=== PATIENT | female | born 1940 | race Caucasian/White ===

== ENCOUNTER 2017-02-27 12:22 | Inpatient (IN) | payer OTHER ==
[~2017-02-27] VITALS: Ht 154.9 cm; Wt 85.8 kg
[~2017-02-27 12:22] MED LIST: AMLO10TA2 PO; CALC500T25 PO; CHOL100010 PO; CIME-56 PO; MAGN500T4 PO; MISCCAP80 PO; OMEG10007 PO; PRLSR20 PO; VITBC PO
[2017-02-27] MEDS ORDERED: SODIUM CHLORIDE 0.9% 1000ML 2,000 ML IV STA (12:48)
[2017-02-27] MEDS ORDERED: CEFEPIME IV 1,000 MG in DEXTROSE 5% 100ML 100 ML IV STA (12:48)
--- NOTE | 2017-02-27 13:04 | DIAGNOSTIC IMAGING REPORT ---
CHEST ONE VIEW PORTABLE HISTORY: fever COMPARISON: Chest 01/11/2013. FINDINGS: Linear density at the left lung base favor subsegmental atelectasis or scarring. No focal lung consolidations to suggest pneumonia. No pleural effusions. No pneumothorax. The heart is mildly enlarged. IMPRESSION: Mild cardiomegaly. No focal lung consolidations to suggest pneumonia. Electronically signed by: Evelio Kelley M.D. 02/27/2017 1:02 PM Dictated Date/Time: 02/27/2017 1:01 PM
[2017-02-27 13:06] LABS: COMPLETE YES; EOS % 0.1 %; HEMATOCRIT 42.8 % (37-47); IG% 0.2 %; LYMPH % 7.5 %; LYMPH ABS # 0.72 K/uL (1.2-3.4); MEAN CELL VOLUME 86.8 fL (80-100); MEAN CORPUSCULAR HEMOGLOBIN 29.8 pg (25-34); MEAN CORPUSCULAR HGB CONC 34.3 g/dl (32-36); MEAN PLATELET VOLUME 10.5 fL (7.4-10.4); MONO % 6.8 %; NEUT % 85.4 %; PLATELET COUNT 165 K/uL (130-400); RED BLOOD COUNT 4.93 M/uL (4.2-5.4); WHITE BLOOD COUNT 9.66 K/uL (4.8-10.8)
[2017-02-27 13:11] LABS: ISTAT CREATININE 1.2 mg/dl (0.6-1.3); ISTAT HEMOGLOBIN 14.3 g/dl (12.0-16.0); ISTAT IONIZED CALCIUM 1.18 mmol/l (1.12-1.32)
[2017-02-27 13:11] LABS: PROTHROMBIN TIME (PATIENT) 10.2 SECONDS (9.0-12.0)
[2017-02-27] MEDS ORDERED: OPTIRAY 320 IV PRN (13:15)
[2017-02-27 13:27] LABS: ALT/SGPT 24 U/L (12-78); AST/SGOT 16 U/L (15-37); BLOOD UREA NITROGEN 20 mg/dl (7-18); CALCIUM 8.8 mg/dl (8.5-10.1); CARBON DIOXIDE 24 mmol/L (21-32); CHLORIDE 109 mmol/L (98-107); GLUCOSE 141 mg/dl (70-99); MAGNESIUM 1.6 mg/dl (1.8-2.4); SODIUM 143 mmol/L (136-145)
[2017-02-27 13:32] LABS: ALKALINE PHOSPHATASE 80 U/L (45-117); CKMB/CK RATIO 3.3 (0-3.0)
[2017-02-27] MEDS ORDERED: ONDANSETRON INJ 2 MG/ML 2 ML VIAL IV STA (13:33)
[2017-02-27] MEDS ORDERED: ACETAMINOPHEN 500 MG TAB PO STA (13:33)
--- NOTE | 2017-02-27 13:38 | DIAGNOSTIC IMAGING REPORT ---
ABDOMEN AND PELVIS CT WITH IV CONTRAST CT DOSE: 782.00 mGy.cm HISTORY: Left lower quadrant abdominal pain. TECHNIQUE: Multiaxial CT images of the abdomen and pelvis were performed following the use of intravenous contrast. COMPARISON STUDY: Abdomen and pelvis CT 08/20/2013. FINDINGS: Linear density lung bases suggestive of subsegmental atelectasis. There are also a few groundglass densities within the lung bases which may be due to mild air trapping. No pneumoperitoneum. No pneumatosis. The liver, spleen, adrenal glands, and pancreas are unremarkable. No retroperitoneal lymphadenopathy. There are few bilateral renal hypodense lesions. Majority of these favor cysts. However there is a 13 mm heterogeneous lesion within the left kidney on image 157 which does not clearly represent a simple cyst. This may demonstrate enhancement and is concerning for a solid renal mass. Normal gallbladder. The uterus, bilateral adnexa, and bladder are unremarkable. Colonic diverticulosis. The colon and small bowel are decompressed which results in suboptimal evaluation. Normal appendix. No bowel obstruction. Questionable thickening and engorgement of the mesenteric vessels within the small bowel loops most pronounced within the right lower quadrant. However, this could be due to the underdistention. IMPRESSION: 1. No evidence for bowel obstruction. Question wall thickening within the small bowel loops within the right side of the abdomen and lower quadrant could be due to underdistention. However, a low-grade enteritis could also have a similar appearance. 2. Colonic diverticulosis. 3. Normal appendix. 4. A 13 mm lesion within the left kidney which is concerning for a solid renal mass. Dedicated nonemergent renal CT or renal MRI is recommended for further evaluation. Electronically signed by: Evelio Kelley M.D. 02/27/2017 1:36 PM Dictated Date/Time: 02/27/2017 1:25 PM
[2017-02-27 14:02] LABS: URINE APPEARANCE CLEAR (CLEAR); URINE BILIRUBIN NEG (NEG); URINE COLOR YELLOW; URINE NITRITE NEG (NEG); URINE PH 5.5 (4.5-7.5); URINE SPECIFIC GRAVITY 1.029 (1.000-1.030); UROBILINOGEN NEG (NEG); ZZURINE CULT IF INDIC CATH NO
[2017-02-27 14:04] LABS: MANUAL MICROSCOPIC REQUIRED? NO; REVIEW REQ? NO
--- NOTE | 2017-02-27 14:46 | EMERGENCY ROOM VISIT NOTE ---
History Report prepared by Elizabeth: Donovan Morrow Under the Supervision of: Dr. Richard Belle D.O. First contact with patient: 12:32 Chief Complaint: ABDOMINAL PAIN Stated Complaint: ABD PAIN, COLD, CHILLS, N/V/D History of Present Illness The patient is a 76 year old female who presents to the Emergency Room with complaints of increased abdominal pain at 0400 this morning. She has had recurrent abdominal pain and bloating for several weeks, which seemed to be initially improving after starting Prilosec. This morning at approximately 0400 she began to experience increased abdominal pain, currently rated 6/10 in severity. This morning she also started to experience chills, nausea, vomiting, and diarrhea. She did not measure her temperature for a fever. The patient ate alone last night and nobody shared the same food. She still has her gallbladder and appendix. Patient denies headache, change in vision, cough, sore throat, rhinorrhea, chest pain, shortness of breath, pain with urination, and melena. She does admit to an earache which has been present for the past 4 months waxing and waning but fairly consistent. She has been unable to eat or drink anything since this started. She does live at home alone. Source of History: patient Onset: 0400 this morning Position: abdomen Symptom Intensity: 6/10 Timing: other (increased) Associated Symptoms: + chills, + diarrhea, + nausea, + vomiting, No SOB, No chest pain, No cough, No fevers, No headache, No melena, No sorethroat, No urinary symptoms Review of Systems See HPI for pertinent positives & negatives. A total of 10 systems reviewed and were otherwise negative. Past Medical & Surgical Medical Problems: (1) Breast cancer (2) Pyelonephritis (3) Stage I breast cancer Family History Diabetes mellitus FHx: cancer FHx: heart disease Hypertension Social History Smoking Status: Never Smoker Alcohol Use: none Drug Use: none Marital Status: single Housing Status: lives alone Occupation Status: retired Current/Historical Medications Scheduled Amlodipine Besylate (Norvasc), 10 MG PO DAILY Calcium Carbonate (Calcium), 1,200 MG PO DAILY Cholecalciferol (Vitamin D), 2,000 INTER.UNIT PO DAILY Fish Oil (Seneca-3), 1 CAP PO DAILY Magnesium Oxide (Mg Supplement (Magnesium), 250 MG PO DAILY Omeprazole (Prilosec), 20 MG PO DAILY Probiotic Product (Probiotic), 1 CAP PO DAILY Vitamin B Complex (Vitamin B Complex), 1 TAB PO DAILY Allergies Coded Allergies: Ciprofloxacin (Verified Allergy, Intermediate, HIVES, 02/27/17) Penicillins (Unverified Allergy, Mild, RASH, 02/27/17) Uncoded Allergies: dermabond tape (Allergy, Severe, rash severe skin breakdown, 11/24/12) Physical Exam Vital Signs Date Time Temp Pulse Resp B/P Pulse Ox O2 Delivery O2 Flow Rate FiO2 02/27/17 14:16 92 18 135/63 96 Room Air 02/27/17 13:28 89 18 185/81 96 Room Air 02/27/17 12:27 38.8 116 20 182/87 97 Room Air Physical Exam GENERAL: Sitting up in bed, ill appearing, mild distress. EYE EXAM: normal conjunctiva. EARS: Mild erythema of left TM with blood on the inferior portion of the TM, right TM normal. OROPHARYNX: no exudate, no erythema, lips, buccal mucosa, and tongue normal and mucous membranes are moist NECK: supple, no nuchal rigidity, no adenopathy, non-tender LUNGS: Clear to auscultation. Normal chest wall mechanics HEART: no murmurs, S1 normal and S2 normal ABDOMEN: abdomen soft, tender to palpation periumbilically, normo-active bowel sounds, no masses, no rebound or guarding. BACK: Back is symmetrical on inspection and there is no deformity, no midline tenderness, no CVA tenderness. SKIN: no rashes and no bruising UPPER EXTREMITIES: upper extremities are grossly normal. LOWER EXTREMITIES: No pitting edema. NEURO EXAM: Normal sensorium, cranial nerves II-XII grossly intact, normal speech, no gross weakness of arms, no gross weakness of legs. Gross sensation intact. Medical Decision & Procedures ER Provider Diagnostic Interpretation: Radiology results as stated below per my review and the radiologist's interpretation: ABDOMEN AND PELVIS CT WITH IV CONTRAST CT DOSE: 782.00 mGy.cm HISTORY: Left lower quadrant abdominal pain. TECHNIQUE: Multiaxial CT images of the abdomen and pelvis were performed following the use of intravenous contrast. COMPARISON STUDY: Abdomen and pelvis CT 08/20/2013. FINDINGS: Linear density lung bases suggestive of subsegmental atelectasis. There are also a few groundglass densities within the lung bases which may be due to mild air trapping. No pneumoperitoneum. No pneumatosis. The liver, spleen, adrenal glands, and pancreas are unremarkable. No retroperitoneal lymphadenopathy. There are few bilateral renal hypodense lesions. Majority of these favor cysts. However there is a 13 mm heterogeneous lesion within the left kidney on image 157 which does not clearly represent a simple cyst. This may demonstrate enhancement and is concerning for a solid renal mass. Normal gallbladder. The uterus, bilateral adnexa, and bladder are unremarkable. Colonic diverticulosis. The colon and small bowel are decompressed which results in suboptimal evaluation. Normal appendix. No bowel obstruction. Questionable thickening and engorgement of the mesenteric vessels within the small bowel loops most pronounced within the right lower quadrant. However, this could be due to the underdistention. IMPRESSION: 1. No evidence for bowel obstruction. Question wall thickening within the small bowel loops within the right side of the abdomen and lower quadrant could be due to underdistention. However, a low-grade enteritis could also have a similar appearance. 2. Colonic diverticulosis. 3. Normal appendix. 4. A 13 mm lesion within the left kidney which is concerning for a solid renal mass. Dedicated nonemergent renal CT or renal MRI is recommended for further evaluation. Electronically signed by: Evelio Kelley M.D. 02/27/2017 1:36 PM Dictated Date/Time: 02/27/2017 1:25 PM CHEST ONE VIEW PORTABLE HISTORY: fever COMPARISON: Chest 01/11/2013. FINDINGS: Linear density at the left lung base favor subsegmental atelectasis or scarring. No focal lung consolidations to suggest pneumonia. No pleural effusions. No pneumothorax. The heart is mildly enlarged. IMPRESSION: Mild cardiomegaly. No focal lung consolidations to suggest pneumonia. Electronically signed by: Evelio Kelley M.D. 02/27/2017 1:02 PM Dictated Date/Time: 02/27/2017 1:01 PM Laboratory Results 02/27/17 12:40 Red Blood Count 4.93, Mean Corpuscular Volume 86.8, Mean Corpuscular Hemoglobin 29.8, Mean Corpuscular Hemoglobin Concent 34.3, Mean Platelet Volume 10.5, Neutrophils (%) (Auto) 85.4, Lymphocytes (%) (Auto) 7.5, Monocytes (%) (Auto) 6.8, Eosinophils (%) (Auto) 0.1, Basophils (%) (Auto) 0.0, Neutrophils # (Auto) 8.25, Lymphocytes # (Auto) 0.72, Monocytes # (Auto) 0.66, Eosinophils # (Auto) 0.01, Basophils # (Auto) 0.00 02/27/17 12:40 Test 02/27/17 12:40 02/27/17 12:54 02/27/17 12:57 02/27/17 13:44 White Blood Count 9.66 K/uL (4.8-10.8) Red Blood Count 4.93 M/uL (4.2-5.4) Hemoglobin 14.7 g/dL (12.0-16.0) Hematocrit 42.8 % (37-47) Mean Corpuscular Volume 86.8 fL (80-100) Mean Corpuscular Hemoglobin 29.8 pg (25-34) Mean Corpuscular Hemoglobin Concent 34.3 g/dl (32-36) Platelet Count 165 K/uL (130-400) Mean Platelet Volume 10.5 fL (7.4-10.4) Neutrophils (%) (Auto) 85.4 % Lymphocytes (%) (Auto) 7.5 % Monocytes (%) (Auto) 6.8 % Eosinophils (%) (Auto) 0.1 % Basophils (%) (Auto) 0.0 % Neutrophils # (Auto) 8.25 K/uL (1.4-6.5) Lymphocytes # (Auto) 0.72 K/uL (1.2-3.4) Monocytes # (Auto) 0.66 K/uL (0.11-0.59) Eosinophils # (Auto) 0.01 K/uL (0-0.5) Basophils # (Auto) 0.00 K/uL (0-0.2) RDW Standard Deviation 44.8 fL (36.4-46.3) RDW Coefficient of Variation 14.1 % (11.5-14.5) Immature Granulocyte % (Auto) 0.2 % Immature Granulocyte # (Auto) 0.02 K/uL (0.00-0.02) Prothrombin Time 10.2 SECONDS (9.0-12.0) Prothromb Time International Ratio 1.0 (0.9-1.1) Est Creatinine Clear Calc Drug Dose 37.0 ml/min Estimated GFR () 46.2 Estimated GFR (Non- 39.8 BUN/Creatinine Ratio 15.0 (10-20) Calcium Level 8.8 mg/dl (8.5-10.1) Magnesium Level 1.6 mg/dl (1.8-2.4) Total Bilirubin 0.5 mg/dl (0.2-1) Direct Bilirubin 0.1 mg/dl (0-0.2) Aspartate Amino Transf (AST/SGOT) 16 U/L (15-37) Alanine Aminotransferase (ALT/SGPT) 24 U/L (12-78) Alkaline Phosphatase 80 U/L (45-117) Total Creatine Kinase 89 U/L (26-192) Creatine Kinase MB 2.9 ng/ml (0.5-3.6) Creatine Kinase MB Ratio 3.3 (0-3.0) Troponin I < 0.015 ng/ml (0-0.045) Total Protein 7.3 gm/dl (6.4-8.2) Albumin 4.1 gm/dl (3.4-5.0) Bedside Lactic Acid Venous 1.62 mmol/L (0.90-1.70) Bedside Hemoglobin 14.3 g/dl (12.0-16.0) Bedside Hematocrit 42 % (37-47) Bedside Sodium 143 mEq/L (135-144) Bedside Potassium 4.0 mEq/L (3.3-5.0) Bedside Chloride 106 mEq/L (101-112) Bedside Total CO2 21 mEq/l (24-31) Anion Gap 21.0 mmol/L (16-25) Bedside Blood Urea Nitrogen 21 mg/dl (7-18) Bedside Creatinine 1.2 mg/dl (0.6-1.3) Bedside Glucose (other) 146 mg/dl (70-99) Bedside Ionized Calcium (Savage) 1.18 mmol/l (1.12-1.32) Urine Color YELLOW Urine Appearance CLEAR (CLEAR) Urine pH 5.5 (4.5-7.5) Urine Specific [place] 1.029 (1.000-1.030) Urine Protein NEG (NEG) Urine Glucose (UA) NEG (NEG) Urine Ketones NEG (NEG) Urine Occult Blood NEG (NEG) Urine Nitrite NEG (NEG) Urine Bilirubin NEG (NEG) Urine Urobilinogen NEG (NEG) Urine Leukocyte Esterase NEG (NEG) Urine WBC (Auto) 1-5 /hpf (0-5) Urine RBC (Auto) 0-4 /hpf (0-4) Urine Hyaline Casts (Auto) 0 /lpf (0-5) Urine Epithelial Cells (Auto) 10-20 /lpf (0-5) Urine Bacteria (Auto) NEG (NEG) Laboratory results per my review. Medications Administered Medications (Trade) Dose Ordered Sig/Balta Route Start Time Stop Time Status Last Admin Dose Admin Sodium Chloride 2,000 ml @ 999 mls/hr Q2H1M STAT IV 02/27/17 12:48 02/27/17 14:48 02/27/17 12:48 999 MLS/HR Cefepime HCl/ Dextrose (Maxipime IV/D5 100ml) 111.3 ml @ 200 mls/hr NOW STAT IV 02/27/17 12:48 02/27/17 13:21 DC 02/27/17 13:25 200 MLS/HR Ondansetron HCl (Zofran Inj) 4 mg NOW STAT IV 02/27/17 13:33 02/27/17 13:34 DC 02/27/17 14:13 4 MG Acetaminophen (Tylenol Tab) 1,000 mg NOW STAT PO 02/27/17 13:33 02/27/17 13:34 DC 02/27/17 14:14 1,000 MG ECG Indication: abdominal pain Rate (beats per minute): 96 Rhythm: sinus rhythm Findings: 1st degree AV block, LBBB, left axis deviation Comparison ECG Date: 17 April 2014 Change: no significant change ED Course ED COURSE: Vital signs were reviewed and showed fever, tachycardia, hypertension. The patients medical record was reviewed The above diagnostic studies were performed and reviewed. ED treatments and interventions as stated above. 1236: The patient was evaluated in room A11b. A complete history and physical examination was performed. 1248: Cefepime HCl 1000 mg / dextrose 111.3 ml @ 200 mls/hr, NSS 2000 ml @ 999 mls/hr. 1333: Tylenol 1000 mg PO, Zofran 4 mg IV. 1413: Discussed the case with Kailyn Perez PA-C, [facility] Hospitalist. The patient will be evaluated. 1415: Upon reevaluation, the patient is stable.I discussed my findings with the patient and she understands and agrees with the treatment plan. Based on the patients age, coexisting illnesses, exam and lab findings the decision to treat as an inpatient was made. The patient remained stable while under my care. The patient will be evaluated for further management. Medical Decision Differential diagnoses includes but is not limited to gastritis, peptic ulcer disease, GERD, gallbladder disease, pancreatitis, small bowel obstruction, acute coronary syndrome, pericarditis, ischemic bowel, irritable bowel disease, irritable bowel syndrome, appendicitis, diverticulitis, malignancy, hernia, urinary tract infection, torsion, perforation, trauma, infectious. Patient is a 76-year-old female who presents the ER for abdominal pain associated with nausea, vomiting and diarrhea. Her abdominal exam is fairly unimpressive. Vitals were remarkable for a temp of 39 and heart rate in the 110 's. IV was established she is given 2 L normal saline. CBC along with BMP, LFTs, bilirubin and troponin were negative. UA was negative. With her abdominal pain and fever she was sent for CT of the abdomen and pelvis which shows mild inflammation of the small bowel which is likely consistent with her gastroenteritis. I do not believe that this is ischemic with a lactate of 1.7. Heart rate improved with fluids. She initially declined Tylenol because she did not want to vomit but she was later agreeable following getting Zofran. She was given a dose cefepime initially with her fever. Based on her symptoms I do believe this consistent with a gastroenteritis. Her left ear is erythematous with blood in the inferior portion but with her pain being present for the past 3-4 months I favor that this is not the likely cause of her fevers. Discussed the case with internal medicine, patient will be evaluated for further workup. Consults Time Called: 1400 Consulting Physician: Kailyn Perez PA-C, [facility] Hospitalist. Returned Call: 1413 The patient will be evaluated. Impression Primary Impression: Acute gastroenteritis Additional Impression: Otitis Scribe Attestation The scribe's documentation has been prepared under my direction and personally reviewed by me in its entirety. I confirm that the note above accurately reflects all work, treatment, procedures, and medical decision making performed by me. Departure Information Dispostion Being Evaluated By Hospitalist Referrals Amy Colmenares M.D. (PCP) Patient Instructions My [facility] Problem Qualifiers Additional Impression: Otitis Laterality: left Qualified Codes: H66.92 - Otitis media, unspecified, left ear
[2017-02-27] MEDS ORDERED: MAGNESIUM SULFATE 1GM / D5W 1 GM in PREMIXED IN D5W 100 ML IV STA (14:51)
[2017-02-27] MEDS ORDERED: ONDANSETRON INJ 2 MG/ML 2 ML VIAL IV PRN (15:45)
[2017-02-27] MEDS ORDERED: ACETAMINOPHEN 325 MG TAB PO PRN (15:45)
[2017-02-27] MEDS ORDERED: CALC500C3 PO (15:55)
[2017-02-27] MEDS ORDERED: TURM500T PO (15:55)
[2017-02-27] MEDS ORDERED: TRAM-10 PO (15:55)
[2017-02-27] MEDS ORDERED: FLUT0.15 NAE (15:55)
[2017-02-27] MEDS ORDERED: CHOLTAB11 PO (15:55)
[2017-02-27] MEDS ORDERED: OXYM0.056 NAE (15:55)
[2017-02-27] MEDS ORDERED: MAGN1CAP4 PO (15:55)
[2017-02-27] MEDS ORDERED: LORA-741 PO (15:55)
[2017-02-27] MEDS ORDERED: TRAMADOL HCL 50 MG TAB PO PRN (16:00)
[2017-02-27] MEDS ORDERED: LORAZEPAM 0.5 MG TAB PO PRN (16:00)
[2017-02-27] MEDS ORDERED: MAGNESIUM SULFATE 1GM / D5W 1 GM BAG ONE (16:01)
[2017-02-27] MEDS: MAGNESIUM SULFATE 1GM / D5W 1 GM BAG IV SCH ×2 (16:15→18:13)
[2017-02-27 16:30] VITALS: BP 156/78; PULSE 90; TEMP 37.4; O2SAT 94; Ht 154.9 cm; Wt 85.8 kg
[2017-02-27] MEDS: SODIUM CHLORIDE 0.9% 1000ML 1,000 ML IV SCH (17:22)
[2017-02-27] MEDS ORDERED: MAGNESIUM SULFATE 1GM / D5W 1 GM in PREMIXED IN D5W 100 ML IV ONE (18:00)
[2017-02-27] MEDS ORDERED: ENOXAPARIN 40 MG/0.4 ML SYR SQ SCH (18:00)
[2017-02-27] MEDS: METRONIDAZOLE / NSS 500 MG in PREMIXED NSS 100 ML IV SCH (18:10)
[2017-02-27 18:39] VITALS: BP 124/72; PULSE 80
--- NOTE | 2017-02-27 18:40 | History and Physical ---
History & Physical Date & Time of Service: February 27, 2017 at 16:00 Chief Complaint: Abd Pain, Cold, Chills, N/V/D Primary Care Physician: Amy Colmenares M.D. History of Present Illness Source: patient, family (daughter in law at bedside), clinic records This is a 76 year old female with PMH of HTN, CKD stage III, breast CA s/p surgery and radiation, GERD, and other problems listed below who presents to the ED for gastrointestinal symptoms starting overnight. Patient states at 4 am this morning she developed periumbilical abdominal pain, bloating, nausea, vomiting, diarrhea, chills, fever of 101.8 at home. Currently pain is resolved but still feels bloated. Pt reports intermittent bloating in the past which initially improved when she was started on Prilosec 2 weeks ago. She was feeling well yesterday. Had pork and sauerkraut last evening. Pt reports 3 month history of intermittent left ear discomfort with decreased hearing for which she has an ENT appointment later this month. The ear is not bothering her currently. Denies weight loss, URI symptoms, cough, SOB, chest pain, swallowing difficulty, reflux, GI bleeding, dysuria, frequency, urgency, calf pain, edema. No recent travel, sick contact, or recent antibiotics. Patient admits to history of left sided kidney mass for several years. Past Medical/Surgical History Medical Problems: (1) Breast cancer Permanent Comment: Status post abnormal left breast mammogram Status post biopsy Status post lumpectomy and sentinel lymph node biopsy 10/25/2012 Stage [id number] Estrogen receptor negative, progesterone receptor positive, and HER-2/shine negative Status post completion of radiation therapy 02/20/2013 received 5930 cGy Status: Resolved (2) GERD (gastroesophageal reflux disease) Status: Chronic (3) HTN (hypertension) Status: Chronic (4) Osteoarthritis Status: Chronic (5) PUD (peptic ulcer disease) Permanent Comment: hx duodenal ulcer Status: Chronic (6) Pyelonephritis Status: Resolved (7) Stage I breast cancer Permanent Comment: Abnormal right breast mammogram Status post biopsy followed by lumpectomy and sentinel lymph node biopsy Stage [id number] Estrogen receptor negative progesterone receptor negative HER-2/shine negative Status post completion of radiation therapy 02/06/2015 received 6120 cGy Status: Resolved Surgical Problems: (1) H/O colonoscopy Permanent Comment: 05/2013- diverticulosis Status: Chronic (2) H/O esophagogastroduodenoscopy Permanent Comment: 01/10/2008- normal 05/2013-small hiatal hernia Status: Chronic (3) History of carpal tunnel surgery Status: Chronic (4) History of lumpectomy of left breast Status: Chronic (5) S/P tubal ligation Status: Chronic (6) Status post hysteroscopic polypectomy Status: Chronic (7) Status post partial mastectomy of right breast Status: Chronic Family History Diabetes mellitus FHx: cancer FHx: heart disease Hypertension Social History Smoking Status: Never Smoker Alcohol Use: occasionally (rare ) Drug Use: none Marital Status: single Housing status: lives alone Occupational Status: retired Multi-Drug Resistant Organisms History of MDRO: No Allergies Coded Allergies: Ciprofloxacin (Verified Allergy, Intermediate, HIVES, 02/27/17) Penicillins (Unverified Allergy, Mild, RASH, 02/27/17) Uncoded Allergies: dermabond tape (Allergy, Severe, rash severe skin breakdown, 11/24/12) Home Medications Scheduled Amlodipine Besylate (Norvasc), 10 MG PO DAILY Calcium Carbonate (Tums), 1,000 MG PO DAILY Cholecalciferol (D-5000), 1 TAB PO DAILY Fish Oil ([place]-3), 1 CAP PO DAILY Fluticasone Propionate (Nasal) (Flonase Allergy Relief), 2 SPRAYS YUDITH DAILY Magnesium Oxide (Magnesium), 500 MG PO DAILY Omeprazole (Prilosec), 20 MG PO DAILY Turmeric (Curcuma Longa) (Turmeric), 1,500 MG PO DAILY Vitamin B Complex (Vitamin B Complex), 1 TAB PO DAILY Scheduled PRN Lorazepam (Ativan), 0.5-1 MG PO HS PRN for Sleep Oxymetazoline Hcl (Afrin), 2 SPRAYS YUDITH BID PRN for Nasal Congestion Tramadol (Ultram), 50 MG PO Q6 PRN for Pain Review of Systems Ten systems reviewed and negative except as noted in HPI. Physical Exam Vital Signs Date Time Temp Pulse Resp B/P Pulse Ox O2 Delivery O2 Flow Rate FiO2 02/27/17 15:42 37.7 88 16 121/65 94 Room Air 02/27/17 14:16 92 18 135/63 96 Room Air 02/27/17 13:28 89 18 185/81 96 Room Air 02/27/17 12:27 38.8 116 20 182/87 97 Room Air General Appearance: WD/WN, no apparent distress, + pertinent finding (pleasant alert 76 year old female, daughter in law at bedside) Head: normocephalic, atraumatic Eyes: normal inspection, PERRL, EOMI ENT: pharynx normal, + pertinent finding (left TM mild erythema inferiorly. no bulging. right TM normal. canals normal.) Neck: supple, trachea midline Respiratory/Chest: lungs clear, normal breath sounds, no respiratory distress, no accessory muscle use Cardiovascular: regular rate, rhythm, no murmur Abdomen/GI: normal bowel sounds, soft, + pertinent finding (mildly tender in periumbilical area, no guarding) Extremities/Musculoskelatal: no calf tenderness, no pedal edema Neurologic/Psych: alert, normal mood/affect, oriented x 3 Skin: normal color, warm/dry Diagnostics Laboratory Results Results Past 24 Hours Test 02/27/17 12:40 02/27/17 12:54 02/27/17 12:57 02/27/17 13:44 Range/Units White Blood Count 9.66 4.8-10.8 K/uL Red Blood Count 4.93 4.2-5.4 M/uL Hemoglobin 14.7 12.0-16.0 g/dL Hematocrit 42.8 37-47 % Mean Corpuscular Volume 86.8 80-100 fL Mean Corpuscular Hemoglobin 29.8 25-34 pg Mean Corpuscular Hemoglobin Concent 34.3 32-36 g/dl Platelet Count 165 130-400 K/uL Mean Platelet Volume 10.5 7.4-10.4 fL Neutrophils (%) (Auto) 85.4 % Lymphocytes (%) (Auto) 7.5 % Monocytes (%) (Auto) 6.8 % Eosinophils (%) (Auto) 0.1 % Basophils (%) (Auto) 0.0 % Neutrophils # (Auto) 8.25 1.4-6.5 K/uL Lymphocytes # (Auto) 0.72 1.2-3.4 K/uL Monocytes # (Auto) 0.66 0.11-0.59 K/uL Eosinophils # (Auto) 0.01 0-0.5 K/uL Basophils # (Auto) 0.00 0-0.2 K/uL RDW Standard Deviation 44.8 36.4-46.3 fL RDW Coefficient of Variation 14.1 11.5-14.5 % Immature Granulocyte % (Auto) 0.2 % Immature Granulocyte # (Auto) 0.02 0.00-0.02 K/uL Prothrombin Time 10.2 9.0-12.0 SECONDS Prothromb Time International Ratio 1.0 0.9-1.1 Sodium Level 143 136-145 mmol/L Potassium Level 4.0 3.5-5.1 mmol/L Chloride Level 109 98-107 mmol/L Carbon Dioxide Level 24 21-32 mmol/L Anion Gap 10.0 21.0 16-25 mmol/L Blood Urea Nitrogen 20 7-18 mg/dl Creatinine 1.30 0.60-1.20 mg/dl Est Creatinine Clear Calc Drug Dose 37.0 ml/min Estimated GFR () 46.2 Estimated GFR (Non- 39.8 BUN/Creatinine Ratio 15.0 10-20 Random Glucose 141 70-99 mg/dl Calcium Level 8.8 8.5-10.1 mg/dl Magnesium Level 1.6 1.8-2.4 mg/dl Total Bilirubin 0.5 0.2-1 mg/dl Direct Bilirubin 0.1 0-0.2 mg/dl Aspartate Amino Transf (AST/SGOT) 16 15-37 U/L Alanine Aminotransferase (ALT/SGPT) 24 12-78 U/L Alkaline Phosphatase 80 45-117 U/L Total Creatine Kinase 89 26-192 U/L Creatine Kinase MB 2.9 0.5-3.6 ng/ml Creatine Kinase MB Ratio 3.3 0-3.0 Troponin I < 0.015 0-0.045 ng/ml Total Protein 7.3 6.4-8.2 gm/dl Albumin 4.1 3.4-5.0 gm/dl Bedside Lactic Acid Venous 1.62 0.90-1.70 mmol/L Bedside Hemoglobin 14.3 12.0-16.0 g/dl Bedside Hematocrit 42 37-47 % Bedside Sodium 143 135-144 mEq/L Bedside Potassium 4.0 3.3-5.0 mEq/L Bedside Chloride 106 101-112 mEq/L Bedside Total CO2 21 24-31 mEq/l Bedside Blood Urea Nitrogen 21 7-18 mg/dl Bedside Creatinine 1.2 0.6-1.3 mg/dl Bedside Glucose (other) 146 70-99 mg/dl Bedside Ionized Calcium ([place]) 1.18 1.12-1.32 mmol/l Urine Color YELLOW Urine Appearance CLEAR CLEAR Urine pH 5.5 4.5-7.5 Urine Specific [place] 1.029 1.000-1.030 Urine Protein NEG NEG Urine Glucose (UA) NEG NEG Urine Ketones NEG NEG Urine Occult Blood NEG NEG Urine Nitrite NEG NEG Urine Bilirubin NEG NEG Urine Urobilinogen NEG NEG Urine Leukocyte Esterase NEG NEG Urine WBC (Auto) 1-5 0-5 /hpf Urine RBC (Auto) 0-4 0-4 /hpf Urine Hyaline Casts (Auto) 0 0-5 /lpf Urine Epithelial Cells (Auto) 10-20 0-5 /lpf Urine Bacteria (Auto) NEG NEG Microbiology Results 02/27/17 Blood Culture, Received Pending 02/27/17 Blood Culture, Received Pending Diagnostic Radiology CHEST ONE VIEW PORTABLE HISTORY: fever COMPARISON: Chest 01/11/2013. FINDINGS: Linear density at the left lung base favor subsegmental atelectasis or scarring. No focal lung consolidations to suggest pneumonia. No pleural effusions. No pneumothorax. The heart is mildly enlarged. IMPRESSION: Mild cardiomegaly. No focal lung consolidations to suggest pneumonia. ABDOMEN AND PELVIS CT WITH IV CONTRAST CT DOSE: 782.00 mGy.cm HISTORY: Left lower quadrant abdominal pain. TECHNIQUE: Multiaxial CT images of the abdomen and pelvis were performed following the use of intravenous contrast. COMPARISON STUDY: Abdomen and pelvis CT 08/20/2013. FINDINGS: Linear density lung bases suggestive of subsegmental atelectasis. There are also a few groundglass densities within the lung bases which may be due to mild air trapping. No pneumoperitoneum. No pneumatosis. The liver, spleen, adrenal glands, and pancreas are unremarkable. No retroperitoneal lymphadenopathy. There are few bilateral renal hypodense lesions. Majority of these favor cysts. However there is a 13 mm heterogeneous lesion within the left kidney on image 157 which does not clearly represent a simple cyst. This may demonstrate enhancement and is concerning for a solid renal mass. Normal gallbladder. The uterus, bilateral adnexa, and bladder are unremarkable. Colonic diverticulosis. The colon and small bowel are decompressed which results in suboptimal evaluation. Normal appendix. No bowel obstruction. Questionable thickening and engorgement of the mesenteric vessels within the small bowel loops most pronounced within the right lower quadrant. However, this could be due to the underdistention. IMPRESSION: 1. No evidence for bowel obstruction. Question wall thickening within the small bowel loops within the right side of the abdomen and lower quadrant could be due to underdistention. However, a low-grade enteritis could also have a similar appearance. 2. Colonic diverticulosis. 3. Normal appendix. 4. A 13 mm lesion within the left kidney which is concerning for a solid renal mass. Dedicated nonemergent renal CT or renal MRI is recommended for further evaluation. EKG NSR, 96 bpm, LAD, non-specific intra-ventricular conduction delay, when compared to prior EKG LBBB is no longer present, as confirmed by cardiology read Impression Assessment and Plan ACUTE GASTROENTERITIS Presents with fever 38.8, tachycardia which resolved with IVF's- likely due to dehydration; does not appear to be septic- no leukocytosis, no hypotension, lactic acid WNL CT a/p- no evidence of obstruction, ? small bowel wall thickening underdistention vs. low grade enteritis, colonic diverticulosis, normal appendix , 13 mm L renal lesion Given dose of cefepime in ER Will continue empiric antibiotics with Rocephin and Flagyl Check stool culture, WBC smear, C diff toxin IVF's PRN Zofran Clear liquid diet Consider GI consult if no improvement HYPOMAGNESEMIA IV replacement ordered Monitor HYPERTENSION BP is intermittently elevated- now improved to 120s systolic Continue amlodipine 10 mg daily CKD STAGE III Creat 1.3- stable from baseline Monitor renal function LEFT KIDNEY LESION Noted on CT; patient reports known left kidney mass for several years CT a/p- A 13 mm lesion within the left kidney which is concerning for a solid renal mass. Dedicated nonemergent renal CT or renal MRI is recommended for further evaluation. Follow up with PCP for further imaging as outpatient LEFT EAR PAIN F/u with ENT as outpatient GERD Continue PPI DVT PROPHYLAXIS Lovenox SQ CODE STATUS Full code per my discussion with the patient DISPOSITION Lives alone Follows with Dr. Amy Colmenares for primary care Patient seen in collaboration with Dr. Rangel. Please see his addendum. Attending Note: Patient is a 76 yr female with multiple comorbidities presents with history of abdominal discomfort, nausea, vomiting, diarrhea, fever, chills since one day duration. She states she had similar symptoms since many months. Last colonoscopy was 6 yrs ago. Denies any blood in stools. Also reports intermittent bloating for which she was taking Prilosec since 2 weeks and states having peptic ulcer disease in her 20s. CT abdomen showed no acute findings. Physical Exam: General Appearance:Moderately built and nourished, no apparent distress Head: normocephalic, Atraumatic Eyes: normal inspection, EOMI, PERRL Neck: supple, Trachea midline Respiratory/Chest: Normal breath sounds, CTA Cardiovascular: S1, S2, No murmur Abdomen/GI:Soft, Non tender, Bowel sounds present Extremities/Musculoskelatal:normal inspection, Trace edema Neurologic/Psych:AAOX3, grossly no focal neurological deficits Skin:normal color,warm Assessment and Plan: GI symptoms Likely Viral Gastroenteritis Check stool studies IV fluids Clear liquid diet, advance as tolerated Continue empiric antibiotics Consider GI for possible colonoscopy if no resolution. I personally reviewed the record. Patient is interviewed and examined at bedside. Patient's care is coordinated with La Perez PA-C. Please refer to the documentation above for details of patient's presentation and for discussion of other issues. VTE Prophylaxis VTE Risk Assessment Done? Y/N: Yes Risk Level: Moderate
[2017-02-27] MEDS: MAGNESIUM OXIDE 400 MG TAB PO SCH (19:55)
[2017-02-27] MEDS ORDERED: CEFTRIAXONE SOD INJ 1 GM in DEXTROSE 5% ADD-VANTAGE 50ML 50 ML IV SCH (20:00)
[2017-02-28 01:02] VITALS: BP 133/71; PULSE 78; TEMP 37.6; O2SAT 96
[2017-02-28] MEDS: SODIUM CHLORIDE 0.9% 1000ML 1,000 ML IV SCH ×2 (02:35→14:17)
[2017-02-28] MEDS: METRONIDAZOLE / NSS 500 MG in PREMIXED NSS 100 ML IV SCH ×2 (02:36→10:31)
[2017-02-28 06:53] LABS: BUN/CREATININE RATIO 13.8 (10-20); CALCIUM 7.7 mg/dl (8.5-10.1); CREATININE 1.2 mg/dl (0.60-1.20); MAGNESIUM 2.2 mg/dl (1.8-2.4); POTASSIUM 3.7 mmol/L (3.5-5.1)
[2017-02-28 07:38] VITALS: BP 129/72; PULSE 84; TEMP 36.8; O2SAT 95
[2017-02-28] MEDS ORDERED: PANTOprazole SOD 40 MG TAB PO SCH (08:00)
[2017-02-28] MEDS ORDERED: FLUTICASONE PROPIONATE NA SPR 16 GM BTL NAE SCH (08:00)
[2017-02-28] MEDS ORDERED: AMLODIPINE BESYLATE 5 MG TAB PO SCH (08:00)
[2017-02-28] MEDS: MAGNESIUM OXIDE 400 MG TAB PO SCH (08:37)
--- NOTE | 2017-02-28 13:31 | Progress Note ---
Internal Med Progress Note Date of Service: February 28, 2017. Provider Documentation: SUBJECTIVE: Seen and examined at bedside. States feeling well. Eager to get discharged. Denies nausea, vomiting, abd pain, diarrhea, fever, chills, chest pain, SOB. Family at bedside. Offers no complaints. OBJECTIVE: Vital Signs-as noted below Physical Exam: General Appearance:Moderately built and nourished, no apparent distress Head: normocephalic, Atraumatic Eyes: normal inspection, EOMI, PERRL Neck: supple, Trachea midline Respiratory/Chest: Normal breath sounds, CTA Cardiovascular: S1, S2, No murmur Abdomen/GI:Soft, Non tender, Bowel sounds present Extremities/Musculoskelatal:normal inspection, Trace edema Neurologic/Psych:AAOX3, grossly no focal neurological deficits Skin:normal color,warm Lab data as noted below. ASSESSMENT & PLAN: ACUTE GASTROENTERITIS Presented with fever, tachycardia, abd discomfort CT ABD: No evidence of obstruction, ? enteritis S/P IV cefepime in ER Continue empiric antibiotics Rocephin and Flagyl Check stool culture, WBC smear, C diff toxin:pending S/P IVF Tolerating diet HYPOMAGNESEMIA Resolved Monitor HYPERTENSION Stable Continue amlodipine 10 mg daily CKD STAGE III Creat 1.3- stable from baseline Monitor renal function LEFT KIDNEY LESION Noted on CT; patient reports known left kidney mass for several years CT a/p- A 13 mm lesion within the left kidney which is concerning for a solid renal mass. Dedicated nonemergent renal CT or renal MRI is recommended for further evaluation. Follow up with PCP for further imaging as outpatient LEFT EAR PAIN F/u with ENT as outpatient GERD Continue PPI DVT PROPHYLAXIS Lovenox SQ CODE STATUS Full code DISPOSITION Plan to discharge home today Follows with Dr. Amy Colmenares on 03/02/17 at 11:20AM Consider Follow up with your Mule Driver for possible colonoscopy as outpatient as advised Seek immediate medical attention if your symptoms reoccur or worsen Vital Signs: Date Time Temp Pulse Resp B/P Pulse Ox O2 Delivery O2 Flow Rate FiO2 02/28/17 08:00 Room Air 02/28/17 07:38 36.8 84 18 129/72 95 Room Air 02/28/17 01:02 37.6 78 20 133/71 96 Room Air 02/28/17 00:05 Room Air 02/27/17 22:00 Room Air 02/27/17 18:39 80 124/72 02/27/17 16:30 37.4 90 18 156/78 94 Room Air 02/27/17 16:30 37.4 90 18 156/78 94 Room Air 02/27/17 15:42 37.7 88 16 121/65 94 Room Air 02/27/17 14:16 92 18 135/63 96 Room Air Lab Results: Results Past 24 Hours Test 02/27/17 13:44 02/28/17 05:34 Range/Units Urine Color YELLOW Urine Appearance CLEAR CLEAR Urine pH 5.5 4.5-7.5 Urine Specific [place] 1.029 1.000-1.030 Urine Protein NEG NEG Urine Glucose (UA) NEG NEG Urine Ketones NEG NEG Urine Occult Blood NEG NEG Urine Nitrite NEG NEG Urine Bilirubin NEG NEG Urine Urobilinogen NEG NEG Urine Leukocyte Esterase NEG NEG Urine WBC (Auto) 1-5 0-5 /hpf Urine RBC (Auto) 0-4 0-4 /hpf Urine Hyaline Casts (Auto) 0 0-5 /lpf Urine Epithelial Cells (Auto) 10-20 0-5 /lpf Urine Bacteria (Auto) NEG NEG Sodium Level 144 136-145 mmol/L Potassium Level 3.7 3.5-5.1 mmol/L Chloride Level 114 98-107 mmol/L Carbon Dioxide Level 24 21-32 mmol/L Anion Gap 6.0 3-11 mmol/L Blood Urea Nitrogen 17 7-18 mg/dl Creatinine 1.20 0.60-1.20 mg/dl Est Creatinine Clear Calc Drug Dose 39.7 ml/min Estimated GFR () 50.8 Estimated GFR (Non- 43.9 BUN/Creatinine Ratio 13.8 10-20 Random Glucose 100 70-99 mg/dl Calcium Level 7.7 8.5-10.1 mg/dl Magnesium Level 2.2 1.8-2.4 mg/dl Microbiology Results 02/28/17 WBC Smear, Received Pending 02/28/17 C.difficile Toxin B Gene (PCR), Received Pending 02/28/17 Shiga Toxin Test, Received Pending 02/28/17 Stool Culture, Received Pending
[2017-02-28] MEDS ORDERED: CEFU500T16 PO (13:50)
[2017-02-28] MEDS ORDERED: METR500T PO (13:50)
--- NOTE | 2017-02-28 13:52 | Discharge Summary ---
Discharge Summary Date of Service February 28, 2017. Discharge Summary Admission Date: February 27, 2017 at 15:38 Discharge Date: February 28, 2017 Discharge Disposition: Home Principal Diagnosis: Acute Gastroenteritis Procedures: CT ABD: 1. No evidence for bowel obstruction. Question wall thickening within the small bowel loops within the right side of the abdomen and lower quadrant could be due to underdistention. However, a low-grade enteritis could also have a similar appearance. 2. Colonic diverticulosis. 3. Normal appendix. 4. A 13 mm lesion within the left kidney which is concerning for a solid renal mass. Dedicated nonemergent renal CT or renal MRI is recommended for further evaluation. CXR: Mild cardiomegaly. No focal lung consolidations to suggest pneumonia. Consultations: None Pending Studies/Follow-Up: Follows with Dr. Amy Colmenares on 03/02/17 at 11:20AM Consider Follow up with your Rolling Mill Operator for possible colonoscopy as outpatient as advised Seek immediate medical attention if your symptoms reoccur or worsen Medication Reconciliation New Medications: Cefuroxime Axetil (Ceftin) 500 Mg Tab 500 MG PO BID for 5 Days, #10 TAB Metronidazole (Flagyl) 500 Mg Tab 500 MG PO TID for 5 Days, #15 TAB Continued Medications: Amlodipine Besylate (Norvasc) 10 Mg Tab 10 MG PO DAILY, TAB Calcium Carbonate (Tums) 500 Mg Chew 1000 MG PO DAILY Cholecalciferol (D-5000) 5,000 Unit Tab 1 TAB PO DAILY for 30 Days, #30 TAB Fish Oil ([place]-3) 1 Ea Cap 1 CAP PO DAILY, CAP Fluticasone Propionate (Nasal) (Flonase Allergy Relief) 50 Mcg/Act Spr 2 SPRAYS YUDITH DAILY Lorazepam (Ativan) 0.5 Mg Tab 0.5-1 MG PO HS PRN for Sleep, TAB Take 1-2 tabs by mouth at bedtime as needed for sleep. Magnesium Oxide (Magnesium) 500 Mg Cap 500 MG PO DAILY Omeprazole (Prilosec) 20 Mg Capcr 20 MG PO DAILY, CAP Oxymetazoline Hcl (Afrin) 0.05 % Spr 2 SPRAYS YUDITH BID PRN for Nasal Congestion Tramadol (Ultram) 50 Mg Tab 50 MG PO Q6 PRN for Pain, TAB Turmeric (Curcuma Longa) (Turmeric) 500 Mg Tab 1500 MG PO DAILY Vitamin B Complex (Vitamin B Complex) 1 Tab Tab 1 TAB PO DAILY Admission Information HPI (per Admitting provider): This is a 76 year old female with PMH of HTN, CKD stage III, breast CA s/p surgery and radiation, GERD, and other problems listed below who presents to the ED for gastrointestinal symptoms starting overnight. Patient states at 4 am this morning she developed periumbilical abdominal pain, bloating, nausea, vomiting, diarrhea, chills, fever of 101.8 at home. Currently pain is resolved but still feels bloated. Pt reports intermittent bloating in the past which initially improved when she was started on Prilosec 2 weeks ago. She was feeling well yesterday. Had pork and sauerkraut last evening. Pt reports 3 month history of intermittent left ear discomfort with decreased hearing for which she has an ENT appointment later this month. The ear is not bothering her currently. Denies weight loss, URI symptoms, cough, SOB, chest pain, swallowing difficulty, reflux, GI bleeding, dysuria, frequency, urgency, calf pain, edema. No recent travel, sick contact, or recent antibiotics. Patient admits to history of left sided kidney mass for several years. Physical Exam (per Admitting): General Appearance: WD/WN, no apparent distress, + pertinent finding ( pleasant alert 76 year old female, daughter in law at bedside) Head: normocephalic, atraumatic Eyes: normal inspection, PERRL, EOMI ENT: pharynx normal, + pertinent finding (left TM mild erythema inferiorly. no bulging. right TM normal. canals normal.) Neck: supple, trachea midline Respiratory/Chest: lungs clear, normal breath sounds, no respiratory distress, no accessory muscle use Cardiovascular: regular rate, rhythm, no murmur Abdomen/GI: normal bowel sounds, soft, + pertinent finding (mildly tender in periumbilical area, no guarding) Extremities/Musculoskelatal: no calf tenderness, no pedal edema Neurologic/Psych: alert, normal mood/affect, oriented x 3 Skin: normal color, warm/dry Hospital Course ACUTE GASTROENTERITIS Presented with fever, tachycardia, abd discomfort CT ABD: No evidence of obstruction, ? enteritis S/P IV cefepime in ER Continue empiric antibiotics Rocephin and Flagyl Check stool culture, WBC smear, C diff toxin:pending S/P IVF Tolerating diet HYPOMAGNESEMIA Resolved Monitor HYPERTENSION Stable Continue amlodipine 10 mg daily CKD STAGE III Creat 1.3- stable from baseline Monitor renal function LEFT KIDNEY LESION Noted on CT; patient reports known left kidney mass for several years CT a/p- A 13 mm lesion within the left kidney which is concerning for a solid renal mass. Dedicated nonemergent renal CT or renal MRI is recommended for further evaluation. Follow up with PCP for further imaging as outpatient LEFT EAR PAIN F/u with ENT as outpatient GERD Continue PPI DVT PROPHYLAXIS Lovenox SQ CODE STATUS Full code DISPOSITION Plan to discharge home today Follows with Dr. Amy Colmenares on 03/02/17 at 11:20AM Consider Follow up with your Rolling Mill Operator for possible colonoscopy as outpatient as advised Seek immediate medical attention if your symptoms reoccur or worsen Total time spent on discharge = This includes examination of the patient, discharge planning, medication reconciliation, and communication with other providers. Discharge Instructions Discharge Instructions Date of Service February 28, 2017. Admission Reason for Admission: Acute Gastroenteritis Discharge Discharge Diagnosis / Problem: Acute Gastroenteritis Discharge Goals Goal(s): Decrease discomfort, Improve function Activity Recommendations Activity Limitations: resume your previous activity Exercise/Sports Limitations: as tolerated . Instructions / Follow-Up Instructions / Follow-Up Follows with Dr. Amy Colmenares on 03/02/17 at 11:20AM Consider Follow up with your Rolling Mill Operator for possible colonoscopy as outpatient as advised Seek immediate medical attention if your symptoms reoccur or worsen Current Hospital Diet Patient's current hospital diet: Regular Diet Discharge Diet Recommended Diet: Regular Diet Pending Studies Studies pending at discharge: yes List of pending studies: Stool Studies Medical Emergencies . Who to Call and When: Medical Emergencies: If at any time you feel your situation is an emergency, please call 911 immediately. . Non-Emergent Contact Non-Emergency issues call your: Primary Care Provider Call Non-Emergent contact if: you have a fever, your pain is not controlled, your pain is worsening, your pain is unusual for you, you have any medication questions . . "Provider Documentation" section prepared by Neftali Rangel. . VTE Core Measure Inpt VTE Proph given/why not?: Enoxaparin (Lovenox)SQ
[2017-02-28 14:37] VITALS: BP 129/72; PULSE 84; TEMP 36.8; O2SAT 95
== END 2017-02-28 14:55 | disposition home or self-care (01) | DRG 392 ==
LOC: ENRESERVDT → ENRESERVTM → C.EDB 12:23 → C.MS4W 15:38
PROVIDERS: ADMIT Internal Medicine; ATTEND Internal Medicine
DX: A08.4 Viral intestinal infection, unspecified (principal); E86.0 Dehydration; E83.42 Hypomagnesemia; N28.89 Other specified disorders of kidney and ureter; H92.02 Otalgia, left ear; I12.9 Hypertensive chronic kidney disease with stage 1 through stage 4 chronic kidney disease, or unspecified chronic kidney disease; N18.3 Chronic kidney disease, stage 3 (moderate); K21.9 Gastro-esophageal reflux disease without esophagitis; M19.90 Unspecified osteoarthritis, unspecified site; Z79.899 Other long term (current) drug therapy

== ENCOUNTER → 2017-05-13 | Outpatient (CLI) | payer OTHER ==
[~2017-05-13] MED LIST changes: +CALC500C3 PO; -CALC500T25 PO; -CHOL100010 PO; +CHOLTAB11 PO; -CIME-56 PO; +FLUT0.15 NAE; +LORA-741 PO; +MAGN1CAP4 PO; -MAGN500T4 PO; -MISCCAP80 PO; +OXYM0.056 NAE; +TRAM-10 PO; +TURM500T PO
--- NOTE | 2017-05-13 16:01 | MAMMOGRAPHY REPORT ---
BILATERAL DIGITAL SCREENING MAMMOGRAM TOMOSYNTHESIS WITH CAD: 05/13/2017 CLINICAL HISTORY: Asymptomatic. Personal history of breast cancer. TECHNIQUE: Breast tomosynthesis in addition to standard 2D mammography was performed. Current study was also evaluated with a Computer Aided Detection (CAD) system. COMPARISON: Comparison is made to exams dated: 05/11/2016 mammogram, 04/30/2015 mammogram, 08/09/2014 mammogram, 08/08/2013 mammogram, 08/05/2012 mammogram, and 03/26/2011 mammogram - [facility]. BREAST COMPOSITION: There are scattered areas of fibroglandular density in both breasts. FINDINGS: No suspicious masses, calcifications, or areas of architectural distortion are noted in ei ther breast. There has been no significant interval change compared to prior exams. There are stable postsurgical changes from bilateral lumpectomies. IMPRESSION: ACR BI-RADS CATEGORY 2: BENIGN There is no mammographic evidence of malignancy. A 1 year screening mammogram is recommended. The pa tient will receive written notification of the results. Approximately 10% of breast cancers are not detected with mammography. A negative mammographic report should not delay biopsy if a clinically suggestive mass is present. Michelle Kilgore M.D. /:05/13/2017 15:42:21 Trouble Shooting Mechanic: Pily MEDINA)(Elian), [facility] letter sent: Normal 1/2 BI-RADS Code: ACR BI-RADS Category 2: Benign
== END | disposition home or self-care (01) ==
LOC: C.MAMM 09:27
PROVIDERS: ATTEND Internal Medicine Hematology
DX: Z12.31 Encounter for screening mammogram for malignant neoplasm of breast (principal); Z85.3 Personal history of malignant neoplasm of breast

== ENCOUNTER → 2017-10-06 | Outpatient (CLI) | payer OTHER ==
[2016-09-02 13:56] VITALS: BP 165/95; PULSE 89
[~2017-10-06] MED LIST changes: +ALOE1LIQ PO
[2017-10-06 14:36] VITALS: BP 144/82; PULSE 76; TEMP 36.8; O2SAT 96
--- NOTE | 2017-10-06 16:54 | Radiation Oncology Follow-Up ---
Radiation Oncology Follow-Up Date of Visit Oct 06, 2017. Reason For Visit Annual follow-up Radiation Completion Date RT to right breast on 02/06/15 and to left breast 02/20/13 Diagnosis (1) Breast cancer Status: Resolved Onset Date: 09/02/2012 Histology Subtype: ductal Stage: l Permanent Comment: Status post abnormal left breast mammogram Status post biopsy Status post lumpectomy and sentinel lymph node biopsy 10/25/2012 Stage [id number] Estrogen receptor negative, progesterone receptor positive, and HER-2/shine negative Status post completion of radiation therapy 02/20/2013 received 5930 cGy Last Edited By: Alisa Pichardo on March 06, 2015 09:06 (2) Stage I breast cancer Status: Resolved Onset Date: 09/10/2014 Histology Subtype: ductal Stage: l Permanent Comment: Abnormal right breast mammogram Status post biopsy followed by lumpectomy and sentinel lymph node biopsy Stage [id number] Estrogen receptor negative progesterone receptor negative HER-2/shine negative Status post completion of radiation therapy 02/06/2015 received 6120 cGy Last Edited By: Alisa Pichardo on Sep 04, 2015 16:28 Interim History She's been doing well over this past year. She denies any changes to her breasts. She is noted no masses or tenderness and no change of the axilla. She 's had no swelling of her arms. She is up-to-date on mammography. She has noted in the past that drinking caffeine will cause breast tenderness. She does try to refrain from drinking caffeine. She only drinks 1 cup of coffee in the morning. She has had no difficulty with breast tenderness over this past year. Her daughter had undergone bilateral mastectomies. She did have genetic testing. The testing is reported as negative by the patient. Allergies Coded Allergies: Ciprofloxacin (Verified Allergy, Intermediate, HIVES, 02/27/17) Penicillins (Unverified Allergy, Mild, RASH, 02/27/17) Uncoded Allergies: dermabond tape (Allergy, Severe, rash severe skin breakdown, 11/24/12) Home Medications Scheduled Aloe Vera (Aloe Vera Juice), 1 CUP PO DAILY Amlodipine Besylate (Norvasc), 10 MG PO DAILY Cholecalciferol (D-5000), 1 TAB PO DAILY Fish Oil ([place]-3), 1 CAP PO DAILY Magnesium Oxide (Magnesium), 1,000 MG PO DAILY Turmeric (Curcuma Longa) (Turmeric), 1,500 MG PO DAILY Vitamin B Complex (Vitamin B Complex), 1 TAB PO DAILY Scheduled PRN Fluticasone Propionate (Nasal) (Flonase Allergy Relief), 2 SPRAYS YUDITH DAILY PRN for Nasal Congestion Lorazepam (Ativan), 0.5-1 MG PO HS PRN for Sleep Review of Systems Gastrointestinal: Symptoms: WNL Oral: Symptoms: No Problems Respiratory: Symptoms: WNL Urinary: Symptoms: WNL Skin: Symptoms: No Problems Breast: Right Upper Arm Measurement: 39.5 Right Mid Arm Measurement: 27.3 Right Wrist Measurement: 16.8 Left Upper Arm Measurement: 28.8 Left Mid Arm Measurement: 28.0 Left Wrist Measurement: 16.8 Arm Dominence: Right Cosmetic Comments: Both breasts have been treated with radiation. Physical Exam Vital Signs Date Time Temp Pulse Resp B/P (MAP) Pulse Ox O2 Delivery O2 Flow Rate FiO2 10/06/17 14:36 36.8 76 16 144/82 96 Fatigue: None General Appearance: no apparent distress Eyes: normal inspection ENT: normal ENT inspection, hearing grossly normal Neck: no adenopathy, thyroid normal Respiratory/Chest: lungs clear, no respiratory distress, no accessory muscle use Breast: Bilateral breast examination reveals well-healed incisions. There are no masses or tenderness and no axillary adenopathy. She has no skin retractions or breast edema. There are no nipple retractions. Using the Cortland score cosmesis she has a in excellent outcome. Cardiovascular: regular rate, rhythm, no gallop, no murmur Abdomen: non tender, soft Extremities: no pedal edema Neurologic/Psychiatric: no motor/sensory deficits, alert, normal mood/affect Skin: warm/dry Lymphatic: no adenopathy Pain Management Patient Reports Pain: Yes Side: Mid Pain Location: Back Patient Preferred Pain Scale: 0 - 10 Initial Pain Intensity: 2.5 Pain Management Plan The pain is related to foot discomfort. She did not require any prescriptive or [id number]-zaw-[id number] pain medications. Laboratory Laboratory Results: not applicable Pathology Pathology Results: not applicable Imaging Imaging Studies: were reviewed, and pertinent findings noted below Imaging Comments Patient: MICHAEL CHIU [facility] Rec: [id number] Address1: [address] [place] [address] [id number] Date: 1940 Sex: F Ref Phy: Amy Colmenares M.D. Att Phy: Todd Colmenares M.D. Amee Phy: Amy Colmenares M.D. Inter Phy: Michelle Kilgore MD [facility] Zip: [place] [address] SC: C.MAMM Report #: [id number] Core Drier: MIROSLAVA Diagnosis: ASYMPTOMATIC/HX BREAST CA Service Date: 05/13/17 MNE: [id number] Ordering Dr: Todd Colmenares M.D. CC: Todd Colmenares M.D. CONF: DICTATED BY: Michelle Kilgore MD MAMMOGRAPHY REPORT BILATERAL DIGITAL SCREENING MAMMOGRAM TOMOSYNTHESIS WITH CAD: 05/13/2017 CLINICAL HISTORY: Asymptomatic. Personal history of breast cancer. TECHNIQUE: Breast tomosynthesis in addition to standard 2D mammography was performed. Current study was also evaluated with a Computer Aided Detection (CAD ) system. COMPARISON: Comparison is made to exams dated: 05/11/2016 mammogram, 04/30/2015 mammogram, 08/09/2014 mammogram, 08/08/2013 mammogram, 08/05/2012 mammogram, and 03/26/2011 mammogram - [facility]. BREAST COMPOSITION: There are scattered areas of fibroglandular density in both breasts. FINDINGS: No suspicious masses, calcifications, or areas of architectural distortion are noted in either breast. There has been no significant interval change compared to prior exams. There are stable postsurgical changes from bilateral lumpectomies. IMPRESSION: ACR BI-RADS CATEGORY 2: BENIGN There is no mammographic evidence of malignancy. A 1 year screening mammogram is recommended. The patient will receive written notification of the results. Approximately 10% of breast cancers are not detected with mammography. A negative mammographic report should not delay biopsy if a clinically suggestive mass is present. Michelle Kilgore M.D. ah/:05/13/2017 15:42:21 Hat Blocking Operator: Pily ALCANTAR(Meena)(M), [facility] letter sent: Normal 1/2 BI-RADS Code: ACR BI-RADS Category 2: Benign Dictated by: Michelle Kilgore MD Signed by: Michelle Kilgore MD Assessment & Plan Plan: Continue annual mammography. She has a mammogram scheduled for April 2018. Continue regular follow-up with her primary care physician, medical oncology, and her breast surgeon. We asked her to return to our office in 1 year. She may call if she has any questions or concerns in the interim. Total Time In Follow-Up I spent 20 minutes speaking to the patient and performing examination. I spent 15 minutes reviewing information in completing this note. Copy To Do Powers MD; Todd Colmenares M.D.; Amy Colmenares M.D. Problem Qualifiers (1) Breast cancer: Breast location: central portion of breast Estrogen receptor status: negative Patient sex: female Laterality: left Qualified Codes: C50.112 - Malignant neoplasm of central portion of left female breast; Z17.1 - Estrogen receptor negative status [ER-] (2) Stage I breast cancer: Estrogen receptor status: negative Laterality: right Qualified Codes: C50.911 - Malignant neoplasm of unspecified site of right female breast; Z17.1 - Estrogen receptor negative status [ER-]
== END | disposition home or self-care (01) ==
LOC: C.ONC 14:23
PROVIDERS: ATTEND Physician Assistant Medical
DX: Z08 Encounter for follow-up examination after completed treatment for malignant neoplasm (principal); Z92.3 Personal history of irradiation; Z85.3 Personal history of malignant neoplasm of breast

== ENCOUNTER → 2017-11-11 | Outpatient (CLI) | payer OTHER ==
[~2017-11-11] MED LIST changes: -CALC500C3 PO; -OXYM0.056 NAE; -PRLSR20 PO; -TRAM-10 PO
--- NOTE | 2017-11-11 13:45 | MAMMOGRAPHY REPORT ---
UNILATERAL RIGHT DIGITAL DIAGNOSTIC MAMMOGRAM TOMOSYNTHESIS WITH CAD: 11/11/2017 CLINICAL HISTORY: The patient had redness and pain involving her right nipple right after [place], which has completely resolved for approximately 4 weeks now. She did not have any palpable lump, nip ple discharge, or other complaints. She currently has no symptoms. History of right breast cancer s tatus post lumpectomy. TECHNIQUE: Breast tomosynthesis in addition to standard 2D mammography was performed. Current study was also evaluated with a Computer Aided Detection (CAD) system. Right CC and MLO 2-D and tomosynthe sis images were obtained. COMPARISON: Comparison is made to exams dated: 05/13/2017 mammogram, 05/11/2016 mammogram, 11/11/2015 u ltrasound, 11/11/2015 mammogram, 04/30/2015 mammogram, and 09/10/2014 mammogram - [facility]. BREAST COMPOSITION: There are scattered areas of fibroglandular density in the right breast. FINDINGS: There are no suspicious masses, calcifications, or areas of nonsurgical architectural disto rtion noted in the right breast. There has been no significant interval change compared to prior exa ms. There are stable post surgical changes in the right upper outer quadrant from prior lumpectomy, including stable density and architectural distortion at the surgical bed. Scattered benign-appearin g calcifications are not significantly changed. IMPRESSION: ACR BI-RADS CATEGORY 2: BENIGN There is no mammographic evidence of malignancy in the right breast. Recommend clinical follow-up fo r right nipple symptoms which have resolved, and recommend routine bilateral screening mammograms whi ch are due April 2018. The patient has been verbally notified of the results. Approximately 10% of breast cancers are not detected with mammography. A negative mammographic report should not delay biopsy if a clinically suggestive mass is present. Michelle Kilgore M.D. ah/:11/11/2017 11:50:43 Electronics Department Manager: Pily MEDINA)(Elian), [facility] letter sent: Normal 1/2 BI-RADS Code: ACR BI-RADS Category 2: Benign
== END | disposition home or self-care (01) ==
LOC: C.MAMM 11:27
PROVIDERS: ATTEND Internal Medicine
DX: N64.9 Disorder of breast, unspecified (principal); Z85.3 Personal history of malignant neoplasm of breast; Z90.89 Acquired absence of other organs

== ENCOUNTER → 2018-05-16 | Outpatient (CLI) | payer OTHER ==
--- NOTE | 2018-05-17 15:23 | MAMMOGRAPHY REPORT ---
BILATERAL DIGITAL SCREENING MAMMOGRAM TOMOSYNTHESIS WITH CAD: 05/16/2018 CLINICAL HISTORY: Asymptomatic. Personal history of breast cancer. TECHNIQUE: The study was acquired using full field digital technology and interpreted from soft copy. Breast tomosynthesis in addition to standard 2D mammography was performed. Current study was also ev aluated with a Computer Aided Detection (CAD) system. COMPARISON: Comparison is made to exams dated: 11/11/2017 mammogram, 05/13/2017 mammogram, 05/11/2016 m ammogram, 11/11/2015 mammogram, 04/30/2015 mammogram, and 09/10/2014 stereotactic biopsy - [facility]. BREAST COMPOSITION: There are scattered areas of fibroglandular density in both breasts. FINDINGS: There are possible faint clusters of microcalcifications in the lateral, middle to posterio r left breast, thought to project superiorly based on the MLO view, for which additional spot magnifi cation views are recommended. There are stable postsurgical changes in each breast, denoting at the sites of prior lumpectomy. Mil d vascular calcifications bilaterally. No other suspicious mass, architectural distortion or cluster of microcalcifications is seen. IMPRESSION: ACR BI-RADS CATEGORY 0: INCOMPLETE EVALUATION: NEED ADDITIONAL IMAGING EVALUATION The possible faint clusters of microcalcifications in the lateral left breast need additional evaluat ion. The patient will be called to schedule an appointment. Some breast cancers are not detected with mammography. A negative mammographic report should not alex y biopsy if a clinically suggestive mass is present. Elvie Diaz M.D. ay/:05/16/2018 17:14:06 Greenskeeper: Marlen Varghese, [facility] letter sent: Addl Imaging 0 BI-RADS Code: ACR BI-RADS Category 0: Incomplete Evaluation: Need Additional Imaging Evaluation
== END | disposition home or self-care (01) ==
LOC: C.MAMM 11:38
PROVIDERS: ATTEND Internal Medicine
DX: Z12.31 Encounter for screening mammogram for malignant neoplasm of breast (principal); Z85.3 Personal history of malignant neoplasm of breast

== ENCOUNTER → 2018-05-25 | Outpatient (CLI) | payer OTHER ==
--- NOTE | 2018-05-25 13:39 | MAMMOGRAPHY REPORT ---
UNILATERAL LEFT DIGITAL DIAGNOSTIC MAMMOGRAM: 05/25/2018 CLINICAL HISTORY: Callback from screening mammogram for left breast calcifications. TECHNIQUE: The study was acquired using full field digital technology and interpreted from soft copy. Spot magnification left CC and ML views were obtained. COMPARISON: Comparison is made to exams dated: 05/16/2018 mammogram, 11/11/2017 mammogram, 05/13/2017 m ammogram, 05/11/2016 mammogram, 11/11/2015 mammogram, and 04/30/2015 mammogram - [facility]. BREAST COMPOSITION: There are scattered areas of fibroglandular density in left breast. FINDINGS: Spot magnification views of the left breast demonstrate a small 5 mm cluster of faint amorphous calci fications within the left lateral posterior breast at approximately 3:00. Additionally, there is a s mall 6 mm cluster of punctate and amorphous calcifications within the left upper outer quadrant. The calcifications were not clearly seen on prior mammograms therefore they are indeterminate and stereo tactic biopsy of both clusters is recommended for further evaluation. IMPRESSION: ACR BI-RADS CATEGORY 4: SUSPICIOUS Two small clusters of calcifications in the left 3:00 breast and left upper outer quadrant. The calc ifications are indeterminate and stereotactic biopsy 2 is recommended for further evaluation. A phone call was made to the physician's office to confirm faxed results were received. The patient has been verbally notified of the results. She tentatively scheduled the biopsy before l eaving the department. Some breast cancers are not detected with mammography. A negative mammographic report should not alex y biopsy if a clinically suggestive mass is present. Michelle Kilgore M.D. /:05/25/2018 12:05:25 Gold Leaf Roller: Marlen Varghese, [facility] letter sent: Abnormal 4/5 BI-RADS Code: ACR BI-RADS Category 4: Suspicious
== END | disposition home or self-care (01) ==
LOC: C.MAMM 11:28
PROVIDERS: ATTEND Internal Medicine
DX: R92.0 Mammographic microcalcification found on diagnostic imaging of breast (principal)

== ENCOUNTER → 2018-06-01 | Outpatient (CLI) | payer OTHER ==
--- NOTE | 2018-06-01 14:08 | Discharge Instructions ---
Discharge Instructions Procedure Procedure Date: Jun 01, 2018. Reason for visit: Left Calcs X 2. Discharge Discharge Date: Jun 01, 2018. Discharge Diagnosis: status post breast biopsy Instructions Activity Recommendations: Additional Limitations (see below) Return to School/Work: no limitations Recommended Home Diet: No Limitations Provider Instructions: ACTIVITY RECOMMENDATIONS: * No lifting, pushing, pulling or exercising the affected side for three days. RETURN TO SCHOOL/WORK: * You may return to work/school after the procedure, but do not perform any strenuous activities for 24 to 48 hours. MEDICATIONS: * Tylenol (two 325 mg) every four to six hours if needed for mild pain (if not allergic to Tylenol). DIET: * Resume previous diet. SPECIAL CARE INSTRUCTIONS: * Keep biopsy site dry for 24 hours. May shower after 24 hours, but do not soak (bathe) incision. * May remove Tegaderm (plastic patch) 24 hours after procedure * Leave the steri-strips on for one week. Allow the steri-strips to fall off by themselves. If not off after one week, you may remove them. You may place a Bandaid crosswise over the strips, if desired. * Apply ice 10 minutes on and 10 minutes off as needed. * Wear a bra at bedtime to sleep more comfortably for 2-3 days. * Your referring physician should have the results after approximately 5 to 7 business days. * Call for unusual bleeding, fever, drainage, etc or if you have any questions call during normal business hours or after hours call Dr Kilgore, . FOLLOW UP VISIT: Follow-up with Referring Physician as scheduled. Allergies Coded Allergies: Ciprofloxacin (Verified Allergy, Intermediate, HIVES, 02/27/17) Penicillins (Unverified Allergy, Mild, RASH, 02/27/17) Uncoded Allergies: dermabond tape (Allergy, Severe, rash severe skin breakdown, 11/24/12) Radha Grant Recommendations: Call your doctor if: * Temperature above 101 degrees * Pain not relieved by pain medicine ordered * There is increased drainage or redness from any incision * You have any unanswered questions or concerns. Your Doctors Instructions noted above were prepared by provider Michelle Kilgore. Patient Signature Section: Patient Instructions Signature Page Virgen Giron Patient (or Guardian) Signature/Date: I have read and understand the instructions given to me by my caregivers. Caregiver/RN/Doctor Signature/Date: The above-named patient and/or guardian has received patient instructions on this date. + Original Patient Signature Page (only) stays with chart. Please make copy for patient.
--- NOTE | 2018-06-02 15:43 | MAMMOGRAPHY REPORT ---
MULTIPLE STEREOTACTIC GUIDED BIOPSIES LEFT BREAST: 06/01/2018 CLINICAL HISTORY: Two small clusters of calcifications in the left breast, in the left upper outer qu adrant and 3:00 breast. PATIENT CONSENT: The procedure, risks, benefits, and alternatives of stereotactic biopsy with clip pl acement were discussed with the patient, and verbal and written consent was obtained. A timeout was performed immediately prior to the procedure. PROCEDURE DESCRIPTION: With stereotactic guidance, aseptic technique, and lidocaine as a local anesth etic (1% lidocaine to anesthetize the skin and 1% lidocaine with epinephrine to anesthetize the deepe r tissues), the clustered calcifications of concern in the left upper outer quadrant (site "a ") were sampled multiple times with a 9-gauge vacuum-assisted biopsy needle (Suros Eviva). The path of appr [facility] was lateral. The specimen radiograph demonstrates calcifications to be present in the samples. A dumbbell-shaped metallic marker clip was placed at the biopsy site. With stereotactic guidance, aseptic technique, and lidocaine as a local anesthetic (1% lidocaine to a nesthetize the skin and 1% lidocaine with epinephrine to anesthetize the deeper tissues), the other s mall cluster of calcifications in the left lateral breast at approximately 3:00 (site "B") was sample d multiple times with a 9-gauge vacuum-assisted biopsy needle (Suros Eviva). The path of approach wa s lateral. The specimen radiograph demonstrates calcifications to be present in the samples. A meta llic marker clip (T-shaped) was placed at the biopsy site. Direct pressure was applied at the biopsy site until hemostasis was achieved. Postprocedure left CC and ML views were obtained to confirm clip placement. The postprocedural mammograms show a dumbbell- shaped biopsy marker clip at the site of the biopsied calcifications in the left upper outer quadrant . A T-shaped biopsy clip is seen at the site of the biopsied calcifications in the left 3:00 breast. No significant postbiopsy hematoma is seen. The patient tolerated the procedure without complicati on. She was given wound care instructions. COMPARISON: Comparison is made to exams dated: 05/16/2018 mammogram, 05/11/2016 mammogram, 11/11/2015 m ammogram, 04/30/2015 mammogram, 09/10/2014 mammogram, and 11/11/2017 mammogram - [facility]. IMPRESSION: STEREOTACTIC GUIDED BIOPSY Stereotactic biopsy of 2 clusters of calcifications in the left upper outer quadrant and left 3:00 br east, with clip placement. The patient will receive pathology results from her referring provider. Michelle Kilgore M.D. ah/:06/01/2018 15:12:06 Typist: Maya Bell RT(R)(M), [facility]
== END | disposition home or self-care (01) ==
LOC: C.MAMM 12:35
PROVIDERS: ATTEND Internal Medicine
DX: D24.2 Benign neoplasm of left breast (principal); R92.0 Mammographic microcalcification found on diagnostic imaging of breast